=== PATIENT | male | born 1965 | race African-American/Black ===

== ENCOUNTER 2017-10-17 11:03 | Emergency (ER) | payer MEDICARE ==
[2017-10-17] MEDS: IV NORMAL SALINE 1000ML BAG 1,000 ML IV ×2 (12:00)
[2017-10-17 12:03] LABS: BILIRUBIN,URINE NEGATIVE (NEG); CLARITY,URINE CLEAR; COLOR,URINE YELLOW; GLUCOSE,URINE NEGATIVE (NEG); NITRITE,URINE NEGATIVE (NEG); PROTEIN,URINE NEGATIVE (NEG-TRACE)
[2017-10-17 12:05] LABS: ADD MAN DIFF? NO
[2017-10-17 12:07] LABS: BASO % 0 % (0-3); EOS # 0.1 x10^3/uL (0.0-0.7); EOS % 1 % (0-3); HEMATOCRIT 43.2 % (39.0-53.0); HEMOGLOBIN 14.1 g/dL (13.0-17.5); LYMPH # 1.6 x10^3/uL (1.0-4.8); LYMPH % 19 % (24-48); MEAN CORPUSCULAR HEMOGLOBIN 25 pg (25-35); MEAN CORPUSCULAR HGB CONC 33 g/dL (31-37); MEAN CORPUSCULAR VOLUME 78 fL (79-100); MONO # 0.7 x10^3/uL (0.0-1.1); MONO % 8 % (0-9); NEUT # 6.3 x10^3uL (1.8-7.7); NEUT % 72 % (31-73); PLATELET COUNT 230 x10^3/uL (140-400); RED BLOOD COUNT 5.54 x10^6/uL (4.30-5.70); RED CELL DISTRIBUTION WIDTH 13.9 % (11.5-14.5); SQUAMOUS EPITHELIAL CELL,UR FEW /LPF; WHITE BLOOD COUNT 8.7 x10^3/uL (4.0-11.0)
[2017-10-17 12:08] LABS: BACTERIA,URINE FEW /HPF (0-FEW); RBC,URINE 0 /HPF (0-2)
[2017-10-17 12:19] LABS: ANION GAP 9 (6-14); BLOOD UREA NITROGEN 21 mg/dL (8-26); CALCIUM 8.9 mg/dL (8.5-10.1); CARBON DIOXIDE 29 mmol/L (21-32); CHLORIDE 104 mmol/L (98-107); CREATININE 1.1 mg/dL (0.7-1.3); GFR 84.7; GLUCOSE 108 mg/dL (70-99); POTASSIUM 3.8 mmol/L (3.5-5.1); SODIUM 142 mmol/L (136-145)
[2017-10-17 12:32] LABS: ALBUMIN 3.4 g/dL (3.4-5.0); ALK PHOS 73 U/L (46-116); ALT (SGPT) 62 U/L (16-63); AST (SGOT) 50 U/L (15-37); DIRECT BILIRUBIN 0.1 mg/dL (0.0-0.2); TOTAL BILIRUBIN 0.2 mg/dL (0.2-1.0); TOTAL PROTEIN 7.6 g/dL (6.4-8.2)
[2017-10-17] MEDS ORDERED: ONDANSETRON PF 4 MG/2 ML VIAL. IV ×2 (13:00)
[2017-10-17] MEDS ORDERED: fentaNYL PF VIAL 100 MCG/2 ML VIAL IV ×2 (13:00)
[2017-10-17] MEDS ORDERED: CONTRAST GIVEN MC ×2 (13:15)
[2017-10-17] MEDS: IOHEXOL 300 MG/ML 100ML VIAL. IV ×2 (13:25)
== END 2017-10-17 15:09 | disposition home or self-care (01) ==
LOC: ER 11:03
DX: N12 Tubulo-interstitial nephritis, not specified as acute or chronic (principal); M79.7 Fibromyalgia; I10 Essential (primary) hypertension; Z88.3 Allergy status to other anti-infective agents; Z88.8 Allergy status to other drugs, medicaments and biological substances
CPT/HCPCS: 36415; 74018; 74177; 80048; 80076; 81001; 85025; 96361; 96365; 99285-25; J0690; J7030; Q9967

== ENCOUNTER 2018-01-14 14:32 | Emergency (ER) | payer MEDICARE | END 2018-01-14 15:49 | disposition home or self-care (01) | LOC: ER 15:49 | DX: M72.2 Plantar fascial fibromatosis (principal); I10 Essential (primary) hypertension; G43.909 Migraine, unspecified, not intractable, without status migrainosus; Z88.8 Allergy status to other drugs, medicaments and biological substances; Z91.041 Radiographic dye allergy status | CPT/HCPCS: 99283 ==

== ENCOUNTER 2019-11-02 23:20 | Emergency (ER) | payer MEDICARE, OTHER ==
[~2019-11-02] VITALS: Ht 175.3 cm; Wt 122.7 kg
[~2019-11-02 23:20] MED LIST: ASPI-612 PO; CYCL10TA2 PO; FLUO20CA16 PO; HYDR-3164 PO; IBUP-1060 PO; LEVO500T59 PO; LEVO750T31 PO; PRED20TA PO
--- NOTE | 2019-11-02 23:52 | PHYS DOC ---
Past Medical History Past Medical History: Depression, Fibromyalgia, Hypertension, Migraines, Other Additional Past Medical Histor: sleep apnea, MUSCLE SPASMS, PANIC ATTACK Past Surgical History: Tonsillectomy, Other Additional Past Surgical Histo: vascectomy Smoking Status: Never Smoker Alcohol Use: None Drug Use: None Adult General Chief Complaint Chief Complaint: UPPER EXTREMITY PAIN [place] [employer] [facility] HPI Patient is a 54 year old male who presents with R arm pain that has been ongoing since earlier today. The patient doesn't remember when his R arm started hurting but states that he remembers is his arm started hurting after a that he attended today. He states this was sometime around noon. He states he doesn't remember any trauma to the arm. He reports 06/20 pain. Denies fever or any additional complaints. Review of Systems Review of Systems Constitutional: Denies fever or chills [] Eyes: Denies change in visual acuity, redness, or eye pain [] HENT: Denies nasal congestion or sore throat [] Respiratory: Denies cough or shortness of breath [] Cardiovascular: No additional information not addressed in HPI [] GI: Denies abdominal pain, nausea, vomiting, bloody stools or diarrhea [] : Denies dysuria or hematuria [] Musculoskeletal: Reports R arm pain Integument: Denies rash or skin lesions [] Neurologic: Denies headache, focal weakness or sensory changes [] Endocrine: Denies polyuria or polydipsia [] All other systems were reviewed and found to be within normal limits, except as documented in this note. Current Medications Current Medications Current Medications Medications (Trade) Dose Ordered Sig/[facility] Start Time Stop Time Status Last Admin Dose Admin Morphine Sulfate (Morphine Sulfate) 5 mg 1X ONCE 11/03/19 00:00 11/03/19 00:21 DC 11/03/19 00:28 5 MG Ondansetron HCl (Zofran) 4 mg 1X ONCE 11/03/19 00:00 11/03/19 00:21 DC 11/03/19 00:29 4 MG Orphenadrine Citrate (Norflex) 60 mg 1X ONCE 11/03/19 00:00 11/03/19 00:21 DC 11/03/19 00:28 60 MG Allergies Allergies Allergies Coded Allergies Type Severity Reaction Last Updated Verified benzocaine Allergy Intermediate 01/21/14 Yes phenol Allergy Intermediate 01/21/14 Yes povidone-iodine Allergy Intermediate 01/21/14 Yes Physical Exam Physical Exam Constitutional: Well developed, well nourished, no acute distress, non-toxic appearance. [] HENT: Normocephalic, atraumatic, bilateral external ears normal, oropharynx moist, no oral exudates, nose normal. [] Eyes: PERRLA, EOMI, conjunctiva normal, no discharge. [] Neck: Normal range of motion, no tenderness, supple, no stridor. [] Cardiovascular:Heart rate regular rhythm, no murmur [] Lungs & Thorax: Bilateral breath sounds clear to auscultation [] Abdomen: Bowel sounds normal, soft, no tenderness, no masses, no pulsatile masses. [] Skin: Warm, dry, no erythema, no rash. [] Back: No tenderness, no CVA tenderness. [] Extremities: Tenderness to R shoulder on examination, reduced ROM. +drop arm test Neurologic: Alert and oriented X 3, normal motor function, normal sensory function, no focal deficits noted. [] Psychologic: Affect normal, judgement normal, mood normal. [] Current Patient Data Vital Signs Vital Signs Date Time Temp Pulse Resp B/P (MAP) Pulse Ox O2 Delivery O2 Flow Rate FiO2 11/03/19 00:28 18 98 Room Air 11/02/19 23:30 98.4 78 170/87 (114) 98.4 Lab Values Laboratory Tests Test 11/03/19 00:02 White Blood Count 12.4 x10^3/uL (4.0-11.0) H Red Blood Count 5.49 x10^6/uL (4.30-5.70) Hemoglobin 13.7 g/dL (13.0-17.5) Hematocrit 42.2 % (39.0-53.0) Mean Corpuscular Volume 77 fL (79-100) L Mean Corpuscular Hemoglobin 25 pg (25-35) Mean Corpuscular Hemoglobin Concent 33 g/dL (31-37) Red Cell Distribution Width 13.8 % (11.5-14.5) Platelet Count 236 x10^3/uL (140-400) Neutrophils (%) (Auto) 81 % (31-73) H Lymphocytes (%) (Auto) 9 % (24-48) L Monocytes (%) (Auto) 9 % (0-9) Eosinophils (%) (Auto) 1 % (0-3) Basophils (%) (Auto) 1 % (0-3) Neutrophils # (Auto) 9.9 x10^3/uL (1.8-7.7) H Lymphocytes # (Auto) 1.2 x10^3/uL (1.0-4.8) Monocytes # (Auto) 1.1 x10^3/uL (0.0-1.1) Eosinophils # (Auto) 0.1 x10^3/uL (0.0-0.7) Basophils # (Auto) 0.1 x10^3/uL (0.0-0.2) D-Dimer (Radha) 0.47 ug/mlFEU (0.00-0.50) Sodium Level 142 mmol/L (136-145) Potassium Level 4.1 mmol/L (3.5-5.1) Chloride Level 105 mmol/L (98-107) Carbon Dioxide Level 25 mmol/L (21-32) Anion Gap 12 (6-14) Blood Urea Nitrogen 21 mg/dL (8-26) Creatinine 1.2 mg/dL (0.7-1.3) Estimated GFR (Cockcroft-Gault) 76.1 BUN/Creatinine Ratio 18 (6-20) Glucose Level 116 mg/dL (70-99) H Calcium Level 8.8 mg/dL (8.5-10.1) Total Bilirubin 0.4 mg/dL (0.2-1.0) Aspartate Amino Transferase (AST) 40 U/L (15-37) H Alanine Aminotransferase (ALT) 38 U/L (16-63) Alkaline Phosphatase 81 U/L (46-116) Troponin I Quantitative < 0.017 ng/mL (0.000-0.055) Total Protein 7.8 g/dL (6.4-8.2) Albumin 3.6 g/dL (3.4-5.0) Albumin/Globulin Ratio 0.9 (1.0-1.7) L Laboratory Tests 11/03/19 00:02 Laboratory Tests 11/03/19 00:02 EKG EKG [] Radiology/Procedures Radiology/Procedures [facility] [address] [place] [address] IMAGING REPORT Signed PATIENT: JANEE ASHER LACCOUNT: [id number] : 1965 LOCATION: ER AGE: 54 SEX: M EXAM STATUS: REG ER ORD. PHYSICIAN: FAZAL BALDERAS APRN REASON: R arm pain/cp, PT UNABLE TO ABDUCT, EXTENT, OR PRONATE/SUPINATE ARM PROCEDURE: HUMERUS RIGHT Three-view right shoulder and two-view right humerus dated 11/03/2019. No comparison available. Clinical data indication: Pain after injury. FINDINGS: 3 views of the right shoulder show normal bony alignment. No displaced fracture. No acute osseous or articular abnormality. Mild hypertrophic change of the AC joint. 2 views of the right humerus show normal bony alignment. No displaced fracture. No acute osseous or articular abnormality. No periostitis or bone destruction. IMPRESSION: No acute radiographic abnormality. Electronically signed by: Fazal Doran MD (11/03/2019 12:39 AM) [id number] DICTATED and SIGNED BY: FAZAL DORAN MD DATE: 11/03/19 003 [][facility] [address] [place] [address] IMAGING REPORT Signed PATIENT: JANEE ASHER LACCOUNT: [id number] : 1965 LOCATION: ER AGE: 54 SEX: M EXAM STATUS: REG ER ORD. PHYSICIAN: FAZAL BALDERAS APRN REASON: R arm pain/cp, PT UNABLE TO MOVE RT ARM OUT OF LUNG FIELD PROCEDURE: CHEST PA & LATERAL Two-view chest dated 11/02/2019. Comparison made to 09/01/2015. INDICATION: Chest pain right arm pain. FINDINGS: PA and lateral views obtained. Heart and mediastinal contours are within normal limits. Mild elevation of right hemidiaphragm. Lungs are clear. No consolidation or pleural effusion. No pneumothorax. IMPRESSION: No acute radiographic abnormality. Electronically signed by: Fazal Doran MD (11/03/2019 12:38 AM) [id number] DICTATED and SIGNED BY: FAZAL DORAN MD DATE: 11/03/19 0038 Course & Med Decision Making Course & Med Decision Making Pertinent Labs and Imaging studies reviewed. (See chart for details) The patient denies trauma to patient and does not remember an event when he damaged something in shoulder. It started after a . Will get cardiac workup, and will get x-ray of shoulder and humerus. Labs and imaging are unremarkable. I suspect the patient tore his rotator cuff based off negative cardiac workup and clinical exam. Will have placed in sling and d/c home. Dragon Disclaimer Dragon Disclaimer This electronic medical record was generated, in whole or in part, using a voice recognition dictation system. Departure Departure Impression: Primary Impression: Shoulder pain Disposition: HOME, SELF-CARE Condition: STABLE Referrals: RICKY SIGALA MD (PCP) Patient Instructions: Rotator Cuff Injury Additional Instructions: Thank you for visiting [facility]. We appreciate you trusting us with your care. If any additional problems come up don't hesitate to return to visit us. Please follow up with your primary care provider so they can plan additional care if needed and know about the problem that you had. If symptoms worsen come back to the Emergency Department. Any concerning symptoms that start such as chest pain, shortness of air, weakness or numbness on one side of the body, running high fevers or any other concerning symptoms return to the ER. Please fill your medications at any pharmacy and follow the prescription instructions. Scripts Hydrocodone/Apap 5-325 (NORCO 5-325 TABLET) 1 Each Tablet 1 TAB PO PRN Q6HRS PRN for PAIN for 3 Days, #10 TAB 0 Refills Prov: FAZAL BALDERAS APRN 11/03/19 FAZAL BALDERAS APRN Nov 02, 2019 23:52
[2019-11-03] MEDS ORDERED: ORPHENADRINE CITRATE 60 MG/2 ML VIAL. IV ONE
[2019-11-03] MEDS ORDERED: MORPHINE SULFATE 10 MG/ML VIAL. IV ONE
[2019-11-03] MEDS ORDERED: ONDANSETRON PF 4 MG/2 ML VIAL. IV ONE
[2019-11-03 00:13] LABS: BASO # 0.1 x10^3/uL (0.0-0.2); BASO % 1 % (0-3); EOS # 0.1 x10^3/uL (0.0-0.7); EOS % 1 % (0-3); HEMATOCRIT 42.2 % (39.0-53.0); HEMOGLOBIN 13.7 g/dL (13.0-17.5); LYMPH # 1.2 x10^3/uL (1.0-4.8); LYMPH % 9 % (24-48); MEAN CORPUSCULAR HEMOGLOBIN 25 pg (25-35); MEAN CORPUSCULAR HGB CONC 33 g/dL (31-37); MEAN CORPUSCULAR VOLUME 77 fL (79-100); MONO # 1.1 x10^3/uL (0.0-1.1); MONO % 9 % (0-9); NEUT # 9.9 x10^3/uL (1.8-7.7); NEUT % 81 % (31-73); PLATELET COUNT 236 x10^3/uL (140-400); RED BLOOD COUNT 5.49 x10^6/uL (4.30-5.70); RED CELL DISTRIBUTION WIDTH 13.8 % (11.5-14.5); WHITE BLOOD COUNT 12.4 x10^3/uL (4.0-11.0)
[2019-11-03 00:29] LABS: CALCIUM 8.8 mg/dL (8.5-10.1); CREATININE 1.2 mg/dL (0.7-1.3); GFR 76.1; POTASSIUM 4.1 mmol/L (3.5-5.1)
[2019-11-03 00:34] LABS: ALBUMIN 3.6 g/dL (3.4-5.0); ALBUMIN/GLOBULIN RATIO 0.9 (1.0-1.7); TOTAL BILIRUBIN 0.4 mg/dL (0.2-1.0); TOTAL PROTEIN 7.8 g/dL (6.4-8.2)
--- NOTE | 2019-11-03 00:41 | RAD ---
Two-view chest dated 11/02/2019. Comparison made to 09/01/2015. INDICATION: Chest pain right arm pain. FINDINGS: PA and lateral views obtained. Heart and mediastinal contours are within normal limits. Mild elevation of right hemidiaphragm. Lungs are clear. No consolidation or pleural effusion. No pneumothorax. IMPRESSION: No acute radiographic abnormality. Electronically signed by: Fazal Doran MD (11/03/2019 12:38 AM) [id number]
--- NOTE | 2019-11-03 00:42 | RAD ---
Three-view right shoulder and two-view right humerus dated 11/03/2019. No comparison available. Clinical data indication: Pain after injury. FINDINGS: 3 views of the right shoulder show normal bony alignment. No displaced fracture. No acute osseous or articular abnormality. Mild hypertrophic change of the AC joint. 2 views of the right humerus show normal bony alignment. No displaced fracture. No acute osseous or articular abnormality. No periostitis or bone destruction. IMPRESSION: No acute radiographic abnormality. Electronically signed by: Fazal Doran MD (11/03/2019 12:39 AM) [id number]
[2019-11-03] MEDS ORDERED: HYDR-3164 PO (00:57)
[2019-11-03 01:00] VITALS: BP 143/100
--- NOTE | 2019-11-03 01:25 | EKG ---
[facility] [address] [place] [address] Test Date: 2019-11-02 Test Time: 23:49:21 Pat Name: JANEE ASHER Department: Room: Gender: M Legal Mediator: : 1965 Requested By: FREDERIC BALDERAS Order Number: [id number] Reading MD: Measurements Intervals [place] Rate: 81 P: 44 NC: 162 QRS: -18 QRSD: 82 T: 35 QT: 370 QTc: 430 Interpretive Statements SINUS RHYTHM LEFTWARD AXIS OTHERWISE NORMAL ECG RI6.01 No previous ECG available for comparison
== END 2019-11-03 01:08 | disposition home or self-care (01) ==
LOC: ER 23:20
DX: M25.511 Pain in right shoulder (principal); F32.9 Major depressive disorder, single episode, unspecified; M79.7 Fibromyalgia; I10 Essential (primary) hypertension; G43.909 Migraine, unspecified, not intractable, without status migrainosus; Z90.89 Acquired absence of other organs; Z98.890 Other specified postprocedural states; Z88.3 Allergy status to other anti-infective agents; Z88.4 Allergy status to anesthetic agent; Z79.899 Other long term (current) drug therapy
CPT/HCPCS: 36415; 71046; 73030; 73060; 80053; 84484; 85025; 85379; 93005; 96374; 96375; 99285; J2270; J2360; J2405

== ENCOUNTER 2020-06-24 10:19 | Emergency (ER) | payer MEDICARE, OTHER ==
[~2020-06-24] VITALS: Ht 172.7 cm; Wt 126.0 kg
[~2020-06-24 10:19] MED LIST changes: -ASPI-612 PO; +ASPI-886 PO
--- NOTE | 2020-06-24 11:15 | PHYS DOC ---
Past Medical History Past Medical History: Arthritis, Dementia, Fibromyalgia, Hypertension, Other Additional Past Medical Histor: SLEEP APNEA Past Surgical History: Other Additional Past Surgical Histo: VESECTOMY Smoking Status: Never Smoker Alcohol Use: None Drug Use: None General Adult EDM: Chief Complaint: PAIN CONTROL HPI: HPI: 55-year-old male with significant history of hypertension, borderline diabetes mellitus, fibromyalgia, anxiety, depression, who presents for evaluation of back pain. The patient reports atraumatic back pain, continuously over the last 2 days or so that radiates to his "whole body". He states his current discomfort is typical for his fibromyalgia, though he states he does not typically have pain for 2 days in a row. No home controller medications. No prior trial of TCAs or neuropathic pain medication. No saddle anesthesia, focal weakness or paresthesia or bowel/bladder dysfunction. Review of Systems: Review of Systems: Gen: No fever, chills. Eyes: No blurred vision, diplopia. ENT: No nasal congestion, sore throat. CV: No CP, palpitations. Resp. No SOB, cough. GI: No abd pain, N/V. : No dysuria, hematuria. Neuro: No TRUONG, dizziness, weakness. MSK: Reports myalgia, arthralgia, back pain. Skin: No acute rash or lesion. Heart Score: Risk Factors: Risk Factors: DM, Current or recent (<one month) smoker, HTN, HLP, family history of CAD, obesity. Risk Scores: Score 0 - 3: 2.5% MACE over next 6 weeks - Discharge Home Score 4 - 6: 20.3% MACE over next 6 weeks - Admit for Clinical Observation Score 7 - 10: 72.7% MACE over next 6 weeks - Early Invasive Strategies Allergies: Allergies: Allergies Coded Allergies Type Severity Reaction Last Updated Verified No Known Drug Allergies 06/24/20 No Physical Exam: PE: Gen: NAD. Well nourished. Head: NC/AT. Eyes: No scleral icterus. No conjunctival injection. ENT: MMM. Posterior OP clear. Neck: Supple. NT. CV: RRR. Peripheral pulses intact. Resp: CTAB. Abd: Soft. NT. ND. MSK: No peripheral cyanosis. No edema. Negative straight leg raise bilaterally. Neuro: A&Ox3. Strength & sensation grossly intact throughout. No dysmetria. Back: No midline spinal tenderness or step-offs. Paraspinal hypertonicity. No overlying skin changes. Skin. Warm. Dry. Psych: Appropriate mood & affect. Current Patient Data: Vital Signs: Vital Signs Date Time Temp Pulse Resp B/P (MAP) Pulse Ox O2 Delivery O2 Flow Rate FiO2 06/24/20 10:35 98.2 74 20 106/55 (72) 97 Room Air 98.2 EKG: EKG: [] Radiology/Procedures: Radiology/Procedures: [] Course & Med Decision Making: Course & Med Decision Making In summary, 55-year-old man with fibromyalgia who presents the evaluation of atraumatic back pain and diffuse arthralgias/myalgias. He reports his current discomfort is usual for him in the setting of known fibromyalgia, though does not typically last this long in duration. No clinical signs or symptoms for acute compressive myelopathy or vasculopathy. No focal neurological deficits. Unremarkable spinal examination. He remains well-appearing and nontoxic. He will be started on lidocaine patch, Flexeril, low-dose gabapentin, to be titrated up as needed per PMD. Dragon Disclaimer: Dragon Disclaimer: This electronic medical record was generated, in whole or in part, using a voice recognition dictation system. Departure Departure Impression: Primary Impression: Chronic pain Additional Impressions: Back pain Fibromyalgia Disposition: 01 DC HOME SELF CARE/HOMELESS Condition: STABLE Referrals: RICKY SIGALA MD (PCP) Patient Instructions: Fibromyalgia Scripts Lidocaine (Lidocaine PATCH ) 1 Each Adh..patch 1 EACH TP DAILY for FOR LOCAL PAIN, #10 PATCH REMOVE AFTER 12 HOURS Prov: LEDAWNA H DO 06/24/20 Cyclobenzaprine Hcl (CYCLOBENZAPRINE HCL) 10 Mg Tablet 1 TAB PO TID, #21 TAB Prov: LE,DAWNA H DO 06/24/20 Gabapentin (GABAPENTIN ) 100 Mg Capsule 100 MG PO TID for NEUROGENIC PAIN, #40 CAP Prov: LE,DAWNA H DO 06/24/20 LE,DAWNA H DO Jun 24, 2020 11:15
[2020-06-24] MEDS ORDERED: CYCL10TA2 PO (11:27)
[2020-06-24] MEDS ORDERED: LIDO700A21 TP (11:27)
[2020-06-24] MEDS ORDERED: GABA-585 PO (11:27)
[2020-06-24] MEDS ORDERED: LIDOCAINE (700MG/PATCH) PATCH. TD ONE (11:30)
[2020-06-24] MEDS ORDERED: CYCLOBENZAPRINE 10 MG TABLET. PO ONE (11:30)
[2020-06-24 12:00] VITALS: BP 151/82
== END 2020-06-24 12:15 | disposition home or self-care (01) ==
LOC: ER 10:19
DX: G89.29 Other chronic pain (principal); M54.5 Low back pain; M79.7 Fibromyalgia; R20.2 Paresthesia of skin; M19.90 Unspecified osteoarthritis, unspecified site; F03.90 Unspecified dementia, unspecified severity, without behavioral disturbance, psychotic disturbance, mood disturbance, and anxiety; I10 Essential (primary) hypertension; Z98.890 Other specified postprocedural states
CPT/HCPCS: 99284

== ENCOUNTER → 2022-01-20 | Outpatient (CLI) | payer OTHER ==
[~2022-01-20] MED LIST changes: +CYCL10TA19 PO; -CYCL10TA2 PO; +GABA-585 PO; +LIDO700A21 TP
--- NOTE | 2022-01-20 09:25 | RAD ---
EXAM: Lumbar spine, 2 views. HISTORY: Pain. COMPARISON: None. FINDINGS: 2 views of the lumbar spine are obtained. There is mild lumbar dextrocurvature. There is no listhesis. The vertebral bodies are normal in height. There is minimal endplate remodeling primarily at L2-L3. There is facet arthropathy at the lower lumbar levels. IMPRESSION: Minimal degenerative change. No acute osseous finding. Electronically signed by: Estefani Javed MD (01/20/2022 9:22 AM) [id number]
== END ==
LOC: RAD 08:47
PROVIDERS: ATTEND Family Medicine
DX: Z02.71 Encounter for disability determination (principal); M47.816 Spondylosis without myelopathy or radiculopathy, lumbar region; M48.8X6 Other specified spondylopathies, lumbar region; M43.8X6 Other specified deforming dorsopathies, lumbar region
CPT/HCPCS: 72100